=== PATIENT | female | born 1990 | race Caucasian/White ===

== ENCOUNTER 2021-05-20 12:13 | Emergency (ER) | payer BC, OTHER ==
[~2021-05-20] VITALS: Ht 170.2 cm; Wt 68.0 kg
--- NOTE | 2021-05-20 13:21 | NUR ---
DR BRITO AT BEDSIDE
[2021-05-20] MEDS ORDERED: LORAZEPAM 1 MG TABLET PO ONE (13:30)
[2021-05-20] MEDS ORDERED: LORAZEPAM 1 MG TABLET ONE (13:47)
--- NOTE | 2021-05-20 16:19 | NUR ---
Patient discharged to home in stable condition. Written and verbal after care instructions given. Patient verbalizes understanding of instruction.
[2021-05-20 16:20] VITALS: BP 112/80
== END 2021-05-20 16:20 | disposition home or self-care (01) ==
LOC: ER 12:21
DX: F14.129 Cocaine abuse with intoxication, unspecified (principal); Z88.1 Allergy status to other antibiotic agents; Z60.2 Problems related to living alone
CPT/HCPCS: 84703-TC